=== PATIENT | male | born 1960 | race Two or more races ===

== ENCOUNTER → 2016-08-23 09:30 | Outpatient (CLI) | payer MEDICAID | END | disposition home or self-care (01) | LOC: D.MRI 09:30 | DX: M25.561 Pain in right knee (principal) ==

== ENCOUNTER 2016-10-03 09:08 | Day surgery (SDC) | payer MEDICAID ==
[~2016-10-03] VITALS: Ht 175.3 cm; Wt 106.6 kg
[~2016-10-03 09:08] MED LIST: NORVASC10 MG PO; PRINIVIL20 MG PO; ZOCOR20 MG PO
[2016-10-03 11:02] LABS: HEMATOCRIT 44.1 % (42.0-54.0); HEMOGLOBIN 14.8 g/dL (13.5-17.5); MCH 28.5 pg (26.0-34.0); MCHC 33.6 g/dL (31.0-37.0); MEAN PLATELET VOLUME 10.4 fL (7.4-10.4); RBC 5.19 10x6/uL (4.20-6.10); RDW 13.4 % (11.5-14.5); WBC 8.3 10x3/uL (4.8-10.8)
[2016-10-03 11:26] VITALS: BP 151/76; Ht 175.3 cm; Wt 106.6 kg
[2016-10-03] MEDS ORDERED: HYDROCODONE-APA1 TAB PO (14:10)
--- NOTE | 2016-10-03 15:49 | NUR ---
1535 1 NORCO 10/325MG PO FOR PAIN TO RIGHT KNEE. RANKS PAIN 8-9/10. FAMILY AT BEDSIDE. REPORT TO Otilia MENJIVAR R.N.. Alejandro VELA R.N.
--- NOTE | 2016-10-03 17:14 | NUR ---
1615- IV D/C'D, PT TOLERATED. CATHETER INTACT 1620- DISCHARGE INSTRUCTIONS COMPLETED, VERBALIZED UNDERSTAND. PAPERWORK SIGNED. 1625- PT DISCHARGED VIA WHEELCHAIR WITH FAMILY.
== END 2016-10-03 16:25 | disposition home or self-care (01) ==
LOC: D.OPS 09:08 → D.PAN 13:15 → D.OPS 13:45 → D.PAN 19:30
PROVIDERS: Anesthesiology
DX: S83.231A Complex tear of medial meniscus, current injury, right knee, initial encounter (principal); I10 Essential (primary) hypertension; G47.30 Sleep apnea, unspecified; Z01.812 Encounter for preprocedural laboratory examination

== ENCOUNTER 2017-01-12 10:15 | Day surgery (SDC) | payer MEDICAID ==
[2017-01-11 13:30] LABS: HEMATOCRIT 44.3 % (42.0-54.0); MCH 28.8 pg (26.0-34.0); MCHC 33.9 g/dL (31.0-37.0); MCV 85.2 fL (80.0-100.0); MEAN PLATELET VOLUME 10.1 fL (7.4-10.4); RBC 5.2 10x6/uL (4.20-6.10); RDW 13.3 % (11.5-14.5)
[~2017-01-12 10:15] MED LIST changes: +ATIVAN1 MG PO; +HYDROCODONE-APA1 TAB PO; +NALFON400 MG PO
[2017-01-12 10:59] VITALS: BP 161/85; BMI 33.3
[2017-01-12] MEDS ORDERED: DILAUDID4 MG PO (13:59)
--- NOTE | 2017-01-12 16:03 | NUR ---
CONSULTED ANESTHESIA REGARDING LEVEL OF PAIN 12/27. CANDIDO ARAUJO CRNA AT BEDSIDE DISCUSSING CASE WITH DR FORD. IT WAS DETERMINTED AT THIS TIME TO REBLOCK THE PATIENT. WILL CONTINUE TO MONITOR THE PATIENT.
--- NOTE | 2017-01-12 17:07 | NUR ---
1545 IV DC WITH CATHER TIP INTACT
--- NOTE | 2017-01-16 14:00 | OP ---
PATIENT NAME: ADELAIDE BOWIE MEDICAL RECORD: [id number] :56 LOCATION:[facility] ADMISSION DATE: SURGEON: LATRICE SIMONS MD DATE OF OPERATION: 01/12/2017 PREOPERATIVE DIAGNOSES: Chronic rotator cuff arthropathy of the left shoulder with impingement syndrome and acromioclavicular arthritis. POSTOPERATIVE DIAGNOSES: Chronic rotator cuff arthropathy of the left shoulder with impingement syndrome and acromioclavicular arthritis. PROCEDURES: Open superior capsular reconstruction with acromioplasty and distal clavicle excision. SURGEON: Latrice Simons MD ANESTHESIA: General. INTRAOPERATIVE COMPLICATIONS: None. SUMMARY OF PATHOLOGIC FINDINGS: The patient had a very broad tendinopathic biceps. The patient's rotator cuff tear was repairable with the exception of the most superior aspect. Utilization of the patient's own biceps tendon that was excised was utilized for the modified superior capsular repair. OPERATIVE SUMMARY IN DETAIL: After obtaining the appropriate preoperative orthopedic surgery consent as well as anesthetic consultation, evaluation and clearance, the patient was brought to the operating room and placed on the operating table in supine position. After general laryngeal mask airway was administered, the patient was placed in beach-chair position. All pressure points were well padded. The patient was held firmly to the operating table using the vacuum pack suction system. Left upper extremity and shoulder were then prepped and draped in routine sterile fashion. The arm was held in the Trimano arm holding device. An anterolateral incision was made from the acromioclavicular joint to approximately 4 cm beyond the deltoid laterally. Subperiosteal dissection was carried out across the acromion as well as over the entire acromioclavicular joint. At this point, the deltoid was reflected anteriorly and pathology as noted above was seen. Subacromial decompression was immediately followed by distal clavicle excision. Serial and sequential rotator cuff reapproximation was done. This patient's rotator cuff tear was primarily posterior supraspinatus tendon and all infraspinatus tendon into the teres minor. Serial and sequential rotator cuff mobilization was followed by livn-ph-hgnw reapproximation of the posterior most aspect of the rotator cuff tear bringing this thing all the way up to approximately the one-half of the supraspinatus tendon that was easily reapproximated. The anterior aspect was also reapproximated to bone. Posterior aspect was reapproximated to bone using an arthroscopic SpeedBridge technique. Having completed this, a obzx-qd-[id number] reparation as far as possible was re-done and then this very large biceps tendon was sewn as an interpositional graft between the anterior and the posterior aspect. This was anchored laterally using a second SpeedBridge and then a rgkb-kb-bbew reapproximation to the graft was done with 2-0 FiberWire. This resulted in an overall good rotator cuff repair with the superior capsular reconstruction. Having completed this, wound was copiously irrigated. The deltoid was then reapproximated to the acromion using #2 FiberWire in a rmqcl-xyrf-lqjw transosseous style suture. FiberWire was also used for closure OPERATIVE REPORT [id number] ADELAIDE BOWIE and reapproximation about the distal clavicle excision. The fascia was then also closed with #2 FiberWire. Having completed this, #1 Vicryl was followed by skin reynaldo for final skin closure. Sterile dressings were applied. The patient was awakened and taken to recovery room in stable condition with a very large abduction pillow splint. All final needle and sponge counts were correct. TRANSINT:[id number] Voice Confirmation ID: [id number] DOCUMENT ID: [id number] KRISTYN WATERMAN, LATRICE GREEN at 1400 CC: [id number] DICTATION DATE: 01/13/17 1120 SLP TEACHER: 01/13/17 1223 [facility] 01/12/17 [id number] [place] [address]
== END 2017-01-12 16:00 | disposition home or self-care (01) ==
LOC: D.OPS 10:15 → D.PAN 10:45 → D.OPS 10:45 → D.PAN 12:00 → D.OPS 12:30
PROVIDERS: Anesthesiology
DX: M75.122 Complete rotator cuff tear or rupture of left shoulder, not specified as traumatic (principal); I10 Essential (primary) hypertension; J44.9 Chronic obstructive pulmonary disease, unspecified; Z01.812 Encounter for preprocedural laboratory examination